=== PATIENT | female | born 1985 | race Caucasian/White ===

== ENCOUNTER → 2017-05-14 | Day surgery (SDC) | payer OTHER ==
--- NOTE | 2017-05-14 11:39 | Operative Report ---
Operative/Inv Procedure Report Surgery Date: 05/14/17 Name of Procedure: Suction dilation and curettage Pre-Operative Diagnosis: Missed Post-Operative Diagnosis: Same Estimated Blood Loss: 150ml Surgeon/Bell Person: ANITHA GARDNER MD Anesthesia: moderate sedation IV Fluids: Lactated Ringer's Urine Output: 100 mL straight cath urine at the beginning of the procedure Specimens: POC Complications: None Condition: Stable Operative Indication: 32-year-old female , intrauterine and 9 weeks, ultrasound show no heartbeat. Operative/Procedure Note Note: The patient was taken to the operating room where IV sedation was found to be adequate. The patient was then examined under anesthesia and found to have a 9 week size uterus with normal adnexa. She was then placed into dorsal lithotomy position and prepared and draped in the usual sterile fashion. A bivalve speculum was then placed in the patient's vagina and the laminaria was removed with ring forcep. The anterior lip of the cervix grasped with Single toothed tenaculum. The uterus was then gently sounded to 9 cm, and an 8 mm suction curette advanced gently into the uterine fundus. The suction device was then activated and the curette rotated to clear the uterus of the product of conception. A sharp curettage was then performed until a gritty texture was noted. The suction curette was then reintroduced to clear the uterus of all remaining products of conception. There was moderate amount of bleeding noted, Methergine 0.2 mg IM was given by anesthesia. Patient was observed no active bleeding noted. And the tenaculum was removed, good hemostasis achieved with silver nitrate. All instruments were withdrawn from the patient's vagina, all instruments and laps counts were correct. Patient tolerated the procedure well. The patient was taken to the recovery room in stable condition. Findings: Anteverted uterus, 9 weeks in size, sounded to 9 cm.
== END ==
LOC: STS
DX: O02.1 Missed abortion (principal)
CPT/HCPCS: 36415; 88305; J1100; J2210; J2250; J2405

== ENCOUNTER → 2017-12-23 | Day surgery (SDC) | payer OTHER ==
[~2017-12-23] VITALS: Ht 160 cm; Wt 87.1 kg
[2017-12-23 10:41] LABS: ABSOLUTE BASOPHIL COUNT 0 /CUMM (0.0-0.2); ABSOLUTE EOSINOPHIL COUNT 0.1 /CUMM (0.0-0.7); ABSOLUTE GRANULOCYTE CT 3.7 /CUMM (1.4-6.5); ABSOLUTE LYMPH COUNT 2.2 /CUMM (1.2-3.4); ABSOLUTE MONOCYTE COUNT 0.4 /CUMM (0.10-0.60); BASOPHIL % 0.5 % (0.0-2.0); EOSINOPHIL % 1.7 % (0-5); GRANULOCYTE % 57.4 % (42.2-75.2); HEMATOCRIT 41.6 % (37-47); MEAN CORPUSCULAR HGB 30.8 PG (27.0-31.0); MEAN CORPUSCULAR HGB CONC 34.3 G/DL (33.0-37.0); MEAN PLATELET VOLUME 7.5 FL (7.4-10.4); PLATELET COUNT 265 /CUMM (130-400); RED BLOOD CELL CT 4.63 /CUMM (4.20-5.40); WHITE BLOOD CELL COUNT 6.5 /CUMM (4.8-10.8)
--- NOTE | 2017-12-23 15:57 | Operative Report ---
Operative/Inv Procedure Report Surgery Date: 12/23/17 Name of Procedure: Suction dilation and curettage Pre-Operative Diagnosis: Missed Post-Operative Diagnosis: Same Estimated Blood Loss: less than 50ml Surgeon/Cafe Lead: Solo Issa MD Anesthesia: local monitored anesthesi Complications: None Condition: Stable Operative Indication: The patient is a 32-year-old 010 diagnosed with a missed at 6 weeks 1 week ago. The patient failed medical management and desires a suction D &C. Because it is her second spontaneous the products of conception collected will be sent for genetics testing. Operative/Procedure Note Note: The patient was taken to the operating room and placed in dorsal supine position. Anesthesia was then obtained without difficulty. The patient was then placed in the dorsal lithotomy position and prepped and draped in the usual sterile fashion. A sterile speculum was placed in the patient's vagina. A single-tooth tenaculum was applied to the anterior lip of the cervix. The cervix was serially dilated to accommodate a 7 mm suction curette. The suction curette was inserted and attached to the suction device which was then activated. 3 passes with the suction curette were performed. Suction curette was then removed and a gentle curettage was performed until a gritty texture was noted in all 4 quadrants. The suction curette was then reinserted into the uterus and activated to clear the uterus of all remaining clots and products of conception. All instruments were then removed from the patient's vagina. Excellent hemostasis was noted. All counts were reported to be correct 2. The patient was then taken to the recovery room in stable condition. The products of conception were sent to pathology at [facility] for genetics analysis. Findings: Small amount of products of conception. The uterus was slightly enlarged anteverted with no palpable adnexal masses. A small amount of dark blood was noted to be oozing from the cervix. Discharge Disposition: Same Day Admissions
== END ==
LOC: STS 05:07
PROVIDERS: Obstetrics & Gynecology
DX: O02.1 Missed abortion (principal)
CPT/HCPCS: 36415; J2250